=== PATIENT | female | born 1940 | race African-American/Black ===

== ENCOUNTER 2020-04-19 09:57 | Day surgery (SDC) | payer MEDICARE ==
[~2020-04-19] VITALS: Ht 157.5 cm; Wt 66.2 kg
[2020-04-19 10:42] LABS: HEMATOCRIT 36.7 % (36.0-48.0); HEMOGLOBIN 11.8 g/dL (12-16); MCH 29.1 pg (26.0-34.0); MCHC 32.2 g/dL (31.0-37.0); MCV 90.4 fL (80.0-100.0); MEAN PLATELET VOLUME 8.8 fL (7.4-10.4); RBC 4.06 10x6/uL (4.00-5.40); RDW 12.9 % (11.5-14.5); WBC 2.7 10x3/uL (4.8-10.8)
[2020-04-19 10:59] VITALS: BP 117/60; Ht 157.5 cm; Wt 66.2 kg
--- NOTE | 2020-04-21 12:50 | OP ---
PATIENT NAME: JUANPABLO ALY MEDICAL RECORD: [id number] :42 LOCATION:D.OPS ADMISSION DATE: SURGEON: RYAN POE DO DATE OF OPERATION: 04/19/2020 PROCEDURE PERFORMED: Right wrist ganglion cyst excision with first dorsal compartment release. PREOPERATIVE DIAGNOSIS: Right wrist ganglion cyst. POSTOPERATIVE DIAGNOSIS: Right wrist ganglion cyst. INDICATIONS: Ms. Aly is a 80-year-old female who has a ganglion cyst right at the first dorsal compartment and a positive Josh test. I told her that we could do first dorsal compartment release and remove the cyst at the same time, and she was okay with that as it has been bothering her for quite some time. I informed of the risks including infection, bleeding, damage to the radial sensory nerve, continued pain, recurrence of the cyst infection, bleeding. She signed the consent. SURGEON: Ryan Poe DO DESCRIPTION OF PROCEDURE: The patient was taken to the operative suite, laid in supine position, given general anesthetic, LMA was placed. She did not receive a block by anesthesia in the preoperative area. The right upper extremity was then prepped and draped in sterile fashion. A timeout was performed. Everyone was agreeance with correct side, site, the patient, and the procedure. I then began by making an incision over the radial styloid. Careful dissection down to the first dorsal compartment. I then released the most dorsal possible and then saw that the APL had another slip and released it as well. I then debrided the synovitis that was there and the ganglion cyst was removed. I then lengthened the first dorsal compartment tendon sheath and sutured it down with 4-0 Monocryl in a horizontal mattress fashion giving the tendon plenty of room to move. The skin was then closed Kd Robison, certified surgical first responder student with a 4-0 Monocryl in inverted interrupted fashion. Steri-Strips, Adaptic, 4 x 4, cast padding, and an Jason wrap was then placed and the patient was awakened and taken to recovery in stable condition. BLOOD LOSS: Minimal. The tourniquet was let down at 11 minutes BLOOD LOSS: Minimal. COMPLICATIONS: None. Tourniquet was up to 250 mmHg for 11 minutes. TRANSINT:[id number] Voice Confirmation ID: [id number] DOCUMENT ID: [id number] OPERATIVE REPORT [id number] JUANPABLO ALY MICHAEL D, DO at 1250 CC: [id number] DICTATION DATE: 04/19/201739 CONTROLS DESIGNER: 04/20/20 0519 [facility] 04/19/20 [facility] [address] [id number]
== END 2020-04-19 16:30 | disposition home or self-care (01) ==
LOC: D.OPS 09:57 → D.PAN 12:00 → D.OPS 13:45 → D.PAN 13:45 → D.OPS 16:30 → D.PAN 17:50
PROVIDERS: Anesthesiology; ATTEND Orthopaedic Surgery
DX: M67.431 Ganglion, right wrist (principal); M25.531 Pain in right wrist